=== PATIENT | female | born 1990 | race Caucasian/White ===

== ENCOUNTER → 2024-01-25 | Outpatient (REF) ==
[~2024-01-25] MED LIST: EPIP0.3I2 IM; LORA-1041 PO; METO1TAB7 PO; NIFE1TAB50 PO
== END ==
LOC: M EMP 07:58
PROVIDERS: ATTEND Family Medicine
DX: Z11.52 Encounter for screening for COVID-19 (principal)

== ENCOUNTER → 2024-03-15 | Outpatient (REF) | LOC: M EMP 10:32 | PROVIDERS: ATTEND Family Medicine | DX: Z11.52 Encounter for screening for COVID-19 (principal) ==

== ENCOUNTER 2024-04-04 08:55 | Emergency (ER) | payer OTHER ==
[~2024-04-04] VITALS: Ht 162.6 cm; Wt 84.6 kg
[2024-04-04 10:12] LABS: BASO % 0.4 % (0.0-1.0); EOS # 0.1 10^3/uL (0.0-0.5); EOS % 0.8 % (0.0-3.0); HEMATOCRIT 42.3 % (36.0-47.0); HEMOGLOBIN 14.2 g/dl (12.0-15.5); LYMPH # 1.9 10^3/uL (1.5-5.0); LYMPH % 19.7 % (24.0-44.0); MEAN CORPUSCULAR HGB CONC 33.6 g/dl (32.0-36.5); MEAN CORPUSCULAR VOLUME 83.4 fl (80.0-96.0); MONO # 0.6 10^3/uL (0.0-0.8); MONO % 6.5 % (2.0-8.0); NEUTROPHILS % 72.2 % (36.0-66.0); PLATELET COUNT, AUTOMATED 281 10^3/uL (150-450); RED BLOOD COUNT 5.07 10^6/uL (4.00-5.40); WHITE BLOOD COUNT 9.7 10^3/uL (4.0-10.0)
[2024-04-04 10:23] LABS: APPEARANCE, URINE HAZY (CLEAR); BACTERIA, URINE AUTO NEGATIVE (NEGATIVE); BILIRUBIN, URINE AUTO NEGATIVE (NEGATIVE); BLOOD, URINE BLOOD NEGATIVE (NEGATIVE); COLOR, URINE AMBER (YELLOW); GLUCOSE, URINE (UA) AUTO NEGATIVE (NEGATIVE); KETONE, URINE AUTO NEGATIVE (NEGATIVE); LEUKOCYTE ESTERASE, URINE AUTO NEGATIVE (NEGATIVE); MUCUS, URINE LARGE (NEGATIVE); NITRITE, URINE AUTO NEGATIVE (NEGATIVE); PROTEIN, URINE AUTO 1+ mg/dL (NEGATIVE); RBC, URINE AUTO 2 /HPF (0-3); SPECIFIC GRAVITY URINE AUTO 1.028 (1.002-1.035); SQUAMOUS EPITHELIAL CELL UR AU 1 /HPF (0-6); UROBILINOGEN, URINE AUTO 0.2 mg/dL (0.0-2.0); WBC, URINE AUTO 1 /HPF (0-3)
[2024-04-04 10:43] LABS: BLOOD UREA NITROGEN 13 MG/DL (9-23); CALCIUM LEVEL 9.6 MG/DL (8.5-10.1); CARBON DIOXIDE LEVEL 23 MMOL/L (20-31); CHLORIDE LEVEL 107 MMOL/L (98-107); CREATININE FOR GFR 0.71 MG/DL (0.55-1.30); GLOMERULAR FILTRATION RATE > 60.0 (>60); GLUCOSE, FASTING 99 MG/DL (60-100); POTASSIUM SERUM 4.2 MMOL/L (3.5-5.1); SODIUM LEVEL 139 MMOL/L (136-145)
[2024-04-04 10:44] LABS: HCG, SERUM QUALITATIVE NEGATIVE (NEGATIVE)
[2024-04-04] MEDS ORDERED: ISOVUE-370 76% 100ML VIAL As Ordered ONE (11:39)
[2024-04-04] MEDS: ONDANSETRON 4MG 2ML VIAL IV ONE (13:25)
[2024-04-04] MEDS: KETOROLAC 30 MG/ML 1ML VIAL IV ONE (13:25)
[2024-04-04 15:44] VITALS: BP 131/78; TEMP 98; O2SAT 98
== END 2024-04-04 16:09 | disposition home or self-care (01) ==
LOC: M ED 08:55
DX: R10.84 Generalized abdominal pain (principal); N94.6 Dysmenorrhea, unspecified; I10 Essential (primary) hypertension; J45.909 Unspecified asthma, uncomplicated; Z88.7 Allergy status to serum and vaccine; Z88.0 Allergy status to penicillin; Z88.1 Allergy status to other antibiotic agents; Z88.4 Allergy status to anesthetic agent; Z88.8 Allergy status to other drugs, medicaments and biological substances; Z79.899 Other long term (current) drug therapy
CPT/HCPCS: 74177; 76830; 76856; 80048; 81001; 84703; 85025; 86850; 86900; 86901; 93976; 96374; 99284; J1885; J2405; Q9967

== ENCOUNTER → 2024-04-08 | Outpatient (REF) | LOC: M EMP 08:16 | PROVIDERS: ATTEND Family Medicine | DX: Z11.52 Encounter for screening for COVID-19 (principal) ==

== ENCOUNTER → 2024-04-26 | Outpatient (REF) | LOC: M EMP 08:06 | PROVIDERS: ATTEND Family Medicine | DX: Z11.52 Encounter for screening for COVID-19 (principal) ==

== ENCOUNTER 2024-06-07 07:12 | Emergency (ER) | payer OTHER ==
[~2024-06-07] VITALS: Ht 162.6 cm; Wt 82.7 kg
[2024-06-07] MEDS ORDERED: MIDOTAB11 PO (07:25)
[2024-06-07 09:06] VITALS: BP 147/79; TEMP 98; O2SAT 96
== END 2024-06-07 09:07 | disposition home or self-care (01) ==
LOC: M ED 07:12
DX: M62.830 Muscle spasm of back (principal); W00.0XXA Fall on same level due to ice and snow, initial encounter; I10 Essential (primary) hypertension; J45.909 Unspecified asthma, uncomplicated; Z79.1 Long term (current) use of non-steroidal anti-inflammatories (NSAID); Z79.899 Other long term (current) drug therapy; Z88.7 Allergy status to serum and vaccine; Z88.0 Allergy status to penicillin; Z88.1 Allergy status to other antibiotic agents; Z88.8 Allergy status to other drugs, medicaments and biological substances; Y92.009 Unspecified place in unspecified non-institutional (private) residence as the place of occurrence of the external cause; Y93.89 Activity, other specified; Y99.9 Unspecified external cause status

== ENCOUNTER → 2024-06-10 | Outpatient (REF) | payer OTHER ==
[~2024-06-10] MED LIST changes: +MIDOTAB11 PO
[2024-06-10 19:39] LABS: BASO # 0.1 10^3/uL (0.0-0.2); BASO % 0.8 % (0.0-1.0); EOS # 0.1 10^3/uL (0.0-0.5); EOS % 1.8 % (0.0-3.0); HEMATOCRIT 42.9 % (36.0-47.0); HEMOGLOBIN 14.1 g/dl (12.0-15.5); LYMPH # 1.7 10^3/uL (1.5-5.0); LYMPH % 26.1 % (24.0-44.0); MEAN CORPUSCULAR HEMOGLOBIN 28.3 pg (27.0-33.0); MEAN CORPUSCULAR HGB CONC 32.9 g/dl (32.0-36.5); MONO # 0.5 10^3/uL (0.0-0.8); MONO % 8.1 % (2.0-8.0); NEUTROPHILS # 4.2 10^3/uL (1.5-8.5); PLATELET COUNT, AUTOMATED 243 10^3/uL (150-450); RED BLOOD COUNT 4.99 10^6/uL (4.00-5.40); WHITE BLOOD COUNT 6.6 10^3/uL (4.0-10.0)
[2024-06-10 19:56] LABS: FERRITIN 12.9 NG/ML (7.3-270.7); IRON (FE) 92 UG/DL (50-170); PERCENT SATURATION 28.8 % (13.2-45.0); TOTAL IRON BINDING CAPACITY 319 UG/DL (250-425)
[2024-06-10 19:57] LABS: ALBUMIN 4.1 G/DL (3.2-5.2); ALKALINE PHOSPHATASE 59 U/L (35-104); ALT/SGPT 18 U/L (7.0-40); AST/SGOT 11 U/L (<34); BILIRUBIN,TOTAL 0.5 MG/DL (0.3-1.2); BLOOD UREA NITROGEN 12 MG/DL (9-23); CALCIUM LEVEL 9.7 MG/DL (8.5-10.1); CARBON DIOXIDE LEVEL 24 MMOL/L (20-31); CHLORIDE LEVEL 108 MMOL/L (98-107); CHOLESTEROL LEVEL 192 MG/DL (<200); CHOLESTEROL RISK RATIO 5.09 (<5); CREATININE FOR GFR 0.75 MG/DL (0.55-1.30); GLOMERULAR FILTRATION RATE > 60.0 (>60); GLUCOSE, FASTING 74 MG/DL (60-100); HDL CHOLESTEROL 37.7 MG/DL (>40); LDL CHOLESTEROL 125.5 MG/DL (<100); NON-HDL-C 154.3 MG/DL; POTASSIUM SERUM 4.7 MMOL/L (3.5-5.1); SODIUM LEVEL 140 MMOL/L (136-145); THYROID STIMULATING HORMONE 1.799 uIU/ML (0.55-4.78); TOTAL PROTEIN 7.5 G/DL (5.7-8.2); TRIGLYCERIDES LEVEL 144 MG/DL (<150)
[2024-06-10 19:58] LABS: TOTAL 25(OH) VITAMIN D 11.9 NG/ML (20.0-100.0)
[2024-06-10 20:23] LABS: HIV 1&2 SCREEN NEGATIVE (NEGATIVE)
[2024-06-10 20:27] LABS: HEMOGLOBIN A1c 4.9 % (4.0-6.0)
[2024-06-10 20:30] LABS: HEPATITIS C VIRUS ABY INDEX 0.04 INDEX (<0.8)
== END ==
LOC: M LAB REF 16:11
PROVIDERS: ATTEND Physician Assistant
DX: D64.9 Anemia, unspecified (principal); E55.9 Vitamin D deficiency, unspecified; E66.9 Obesity, unspecified; Z11.9 Encounter for screening for infectious and parasitic diseases, unspecified

== ENCOUNTER 2024-06-15 16:27 | Emergency (ER) | payer OTHER ==
[~2024-06-15] VITALS: Ht 162.6 cm; Wt 83.3 kg
[2024-06-15 18:46] LABS: BASO # 0.1 10^3/uL (0.0-0.2); BASO % 0.5 % (0.0-1.0); EOS # 0.1 10^3/uL (0.0-0.5); EOS % 0.5 % (0.0-3.0); HEMOGLOBIN 13.5 g/dl (12.0-15.5); LYMPH # 2.9 10^3/uL (1.5-5.0); LYMPH % 31.5 % (24.0-44.0); MEAN CORPUSCULAR HEMOGLOBIN 28.5 pg (27.0-33.0); MEAN CORPUSCULAR HGB CONC 33.8 g/dl (32.0-36.5); MEAN CORPUSCULAR VOLUME 84.4 fl (80.0-96.0); MONO # 0.8 10^3/uL (0.0-0.8); MONO % 8.4 % (2.0-8.0); NEUTROPHILS # 5.4 10^3/uL (1.5-8.5); NEUTROPHILS % 58.9 % (36.0-66.0); PLATELET COUNT, AUTOMATED 274 10^3/uL (150-450); RED BLOOD COUNT 4.74 10^6/uL (4.00-5.40); WHITE BLOOD COUNT 9.2 10^3/uL (4.0-10.0)
[2024-06-15 18:56] LABS: KETONE, URINE AUTO RFX NEGATIVE (NEGATIVE); LEUKOCYTE ESTERASE UR AUTO RFX NEGATIVE (NEGATIVE); MUCUS, URINE RFX SMALL (NEGATIVE); NITRITE, URINE AUTO RFX NEGATIVE (NEGATIVE); RBC, URINE AUTO RFX 2 /HPF (0-3); SQUAM EPITHELIAL CELL UR AURFX 7 /HPF (0-6); WBC, URINE AUTO RFX 2 /HPF (0-3)
[2024-06-15 19:15] LABS: LIPASE 31 U/L (12-53)
[2024-06-15 19:17] LABS: ALBUMIN 4.1 G/DL (3.2-5.2); ALKALINE PHOSPHATASE 57 U/L (35-104); ALT/SGPT 15 U/L (7.0-40); AST/SGOT 13 U/L (<34); BILIRUBIN,DIRECT 0.1 MG/DL (<0.4); BILIRUBIN,TOTAL 0.5 MG/DL (0.3-1.2); BLOOD UREA NITROGEN 10 MG/DL (9-23); CARBON DIOXIDE LEVEL 25 MMOL/L (20-31); CHLORIDE LEVEL 107 MMOL/L (98-107); GLOMERULAR FILTRATION RATE > 60.0 (>60); GLUCOSE, FASTING 91 MG/DL (60-100); POTASSIUM SERUM 4.1 MMOL/L (3.5-5.1); SODIUM LEVEL 141 MMOL/L (136-145)
[2024-06-15] MEDS: ACETAMINOPHEN *IV* 1,000 MG in IV 1 EA IV ONE (19:22)
[2024-06-15] MEDS ORDERED: ISOVUE-370 76% 100ML VIAL As Ordered ONE (19:35)
[2024-06-15 22:36] LABS: HCG, SERUM QUALITATIVE NEGATIVE (NEGATIVE)
[2024-06-15] MEDS: METOPROLOL SUCC (TopROL XL) 50MG **XL** TAB PO ONE (22:45)
[2024-06-15 23:27] VITALS: BP 143/81
[2024-06-15] MEDS: NIFEdipine 30MG XL TAB PO ONE (23:27)
[2024-06-16] MEDS ORDERED: IBUP-1022 PO (01:30)
[2024-06-16 01:39] VITALS: BP 141/79; TEMP 98.2; O2SAT 98
[2024-06-17] MEDS ORDERED: FLUC150T9 PO (16:04)
== END 2024-06-16 01:44 | disposition home or self-care (01) ==
LOC: M ED 16:27
DX: R10.9 Unspecified abdominal pain (principal); N83.202 Unspecified ovarian cyst, left side; N28.1 Cyst of kidney, acquired; I10 Essential (primary) hypertension; J45.909 Unspecified asthma, uncomplicated; Z88.7 Allergy status to serum and vaccine; Z88.0 Allergy status to penicillin; Z88.1 Allergy status to other antibiotic agents; Z88.8 Allergy status to other drugs, medicaments and biological substances; Z79.1 Long term (current) use of non-steroidal anti-inflammatories (NSAID); Z79.899 Other long term (current) drug therapy
CPT/HCPCS: 74177; 76830; 76856; 80048; 80076; 81001; 83690; 84703; 85025; 93976; 96365; 99284; J0131; Q9967

== ENCOUNTER 2024-06-17 11:01 | Emergency (ER) | payer OTHER ==
[~2024-06-17] VITALS: Ht 162.6 cm; Wt 82.3 kg
[~2024-06-17 11:01] MED LIST changes: +IBUP-1022 PO
[2024-06-17] MEDS: ONDANSETRON 4MG 2ML VIAL IV ONE (13:05)
[2024-06-17] MEDS: ACETAMINOPHEN *IV* 1,000 MG in IV 1 EA IV ONE (13:05)
[2024-06-17 13:52] LABS: BASO % 0.5 % (0.0-1.0); EOS % 0.5 % (0.0-3.0); HEMATOCRIT 41.3 % (36.0-47.0); HEMOGLOBIN 14.1 g/dl (12.0-15.5); LYMPH % 25.4 % (24.0-44.0); MEAN CORPUSCULAR HEMOGLOBIN 28.7 pg (27.0-33.0); MEAN CORPUSCULAR HGB CONC 34.1 g/dl (32.0-36.5); MEAN CORPUSCULAR VOLUME 83.9 fl (80.0-96.0); MONO # 0.7 10^3/uL (0.0-0.8); MONO % 8.9 % (2.0-8.0); NEUTROPHILS # 5.1 10^3/uL (1.5-8.5); NEUTROPHILS % 64.4 % (36.0-66.0); PLATELET COUNT, AUTOMATED 252 10^3/uL (150-450); RED BLOOD COUNT 4.92 10^6/uL (4.00-5.40); WHITE BLOOD COUNT 7.8 10^3/uL (4.0-10.0)
[2024-06-17 14:18] LABS: ALBUMIN 4.1 G/DL (3.2-5.2); ALKALINE PHOSPHATASE 56 U/L (35-104); ALT/SGPT 18 U/L (7.0-40); AST/SGOT 12 U/L (<34); BILIRUBIN,DIRECT 0.2 MG/DL (<0.4); BILIRUBIN,TOTAL 0.6 MG/DL (0.3-1.2); BLOOD UREA NITROGEN 10 MG/DL (9-23); CALCIUM LEVEL 10.1 MG/DL (8.5-10.1); CARBON DIOXIDE LEVEL 24 MMOL/L (20-31); CHLORIDE LEVEL 107 MMOL/L (98-107); CREATININE FOR GFR 0.78 MG/DL (0.55-1.30); GLOMERULAR FILTRATION RATE > 60.0 (>60); GLUCOSE, FASTING 88 MG/DL (60-100); SODIUM LEVEL 142 MMOL/L (136-145); TOTAL PROTEIN 7.9 G/DL (5.7-8.2)
[2024-06-17 14:25] LABS: HCG, SERUM QUALITATIVE NEGATIVE (NEGATIVE)
[2024-06-17] MEDS: NS (Normal Saline) 0.9% 1,000 ML IV ONE (14:40)
[2024-06-17] MEDS ORDERED: ISOVUE-370 76% 100ML VIAL As Ordered ONE (14:50)
[2024-06-17] MEDS: KETOROLAC 30 MG/ML 1ML VIAL IV ONE (15:10)
[2024-06-17 15:16] LABS: KETONE, URINE AUTO RFX TRACE mg/dL (NEGATIVE); LEUKOCYTE ESTERASE UR AUTO RFX NEGATIVE (NEGATIVE); MUCUS, URINE RFX LARGE (NEGATIVE); NITRITE, URINE AUTO RFX NEGATIVE (NEGATIVE); RBC, URINE AUTO RFX 1 /HPF (0-3); SQUAM EPITHELIAL CELL UR AURFX 2 /HPF (0-6); WBC, URINE AUTO RFX 2 /HPF (0-3)
[2024-06-17 15:31] VITALS: BP 139/81; TEMP 98.1; O2SAT 100
[2024-06-17] MEDS ORDERED: FLUC150T9 PO (16:04)
[2024-06-17 16:29] LABS: Trichomonas vaginalis (AMP) NOT DETECTED (NEGATIVE)
[2024-06-17 16:53] LABS: GC DNA AMPLIFICATION NEGATIVE (NEGATIVE)
== END 2024-06-17 16:15 | disposition home or self-care (01) ==
LOC: M ED 11:01
DX: R10.31 Right lower quadrant pain (principal); B37.31 Acute candidiasis of vulva and vagina; N83.202 Unspecified ovarian cyst, left side; K59.00 Constipation, unspecified; I10 Essential (primary) hypertension; J45.909 Unspecified asthma, uncomplicated; Z88.1 Allergy status to other antibiotic agents; Z88.7 Allergy status to serum and vaccine; Z88.8 Allergy status to other drugs, medicaments and biological substances; Z79.1 Long term (current) use of non-steroidal anti-inflammatories (NSAID); Z79.899 Other long term (current) drug therapy
CPT/HCPCS: 74177; 76830; 76856; 80048; 80076; 81001; 84703; 85025; 87210; 87661; 87810; 87850; 93976; 96374; 96375; 99284; J0131; J1885; J2405; Q9967

== ENCOUNTER 2024-06-21 15:40 | Emergency (ER) | payer OTHER ==
[~2024-06-21] VITALS: Ht 162.6 cm; Wt 83.0 kg
[~2024-06-21 15:40] MED LIST changes: +FLUC150T9 PO
[2024-06-21 17:31] LABS: BASO # 0.1 10^3/uL (0.0-0.2); BASO % 0.6 % (0.0-1.0); EOS # 0.1 10^3/uL (0.0-0.5); EOS % 0.8 % (0.0-3.0); HEMATOCRIT 41.4 % (36.0-47.0); HEMOGLOBIN 14.2 g/dl (12.0-15.5); LYMPH # 2.6 10^3/uL (1.5-5.0); MEAN CORPUSCULAR HEMOGLOBIN 28.4 pg (27.0-33.0); MEAN CORPUSCULAR HGB CONC 34.3 g/dl (32.0-36.5); MEAN CORPUSCULAR VOLUME 82.8 fl (80.0-96.0); MONO # 0.8 10^3/uL (0.0-0.8); MONO % 7.7 % (2.0-8.0); NEUTROPHILS # 6.6 10^3/uL (1.5-8.5); NEUTROPHILS % 64.6 % (36.0-66.0); PLATELET COUNT, AUTOMATED 265 10^3/uL (150-450); WHITE BLOOD COUNT 10.2 10^3/uL (4.0-10.0)
[2024-06-21 17:58] LABS: LIPASE 29 U/L (12-53)
[2024-06-21 18:00] LABS: ALBUMIN 4.4 G/DL (3.2-5.2); ALKALINE PHOSPHATASE 55 U/L (35-104); ALT/SGPT 14 U/L (7.0-40); AST/SGOT 12 U/L (<34); BILIRUBIN,DIRECT 0.2 MG/DL (<0.4); BILIRUBIN,TOTAL 0.7 MG/DL (0.3-1.2); BLOOD UREA NITROGEN 14 MG/DL (9-23); CALCIUM LEVEL 9.8 MG/DL (8.5-10.1); CARBON DIOXIDE LEVEL 22 MMOL/L (20-31); CHLORIDE LEVEL 107 MMOL/L (98-107); CREATININE FOR GFR 0.67 MG/DL (0.55-1.30); GLOMERULAR FILTRATION RATE > 60.0 (>60); GLUCOSE, FASTING 91 MG/DL (60-100); POTASSIUM SERUM 4.3 MMOL/L (3.5-5.1); SODIUM LEVEL 139 MMOL/L (136-145); TOTAL PROTEIN 8.1 G/DL (5.7-8.2)
[2024-06-21 19:13] LABS: HCG, SERUM QUALITATIVE NEGATIVE (NEGATIVE)
[2024-06-21] MEDS: ONDANSETRON 4MG ORAL DISINTEGRATING TAB PO ONE (20:16)
[2024-06-21 20:38] VITALS: BP 144/80; TEMP 97.6; O2SAT 98
== END 2024-06-21 20:45 | disposition home or self-care (01) ==
LOC: M ED 15:40
DX: R11.2 Nausea with vomiting, unspecified (principal); R19.7 Diarrhea, unspecified; F41.9 Anxiety disorder, unspecified; F32.A Depression, unspecified; Z88.7 Allergy status to serum and vaccine; Z88.0 Allergy status to penicillin; Z88.1 Allergy status to other antibiotic agents; Z88.8 Allergy status to other drugs, medicaments and biological substances; Z79.1 Long term (current) use of non-steroidal anti-inflammatories (NSAID); Z79.899 Other long term (current) drug therapy

== ENCOUNTER → 2024-06-22 | Outpatient (REF) | payer OTHER | LOC: M LAB REF 09:26 | PROVIDERS: ATTEND Physician Assistant Medical | DX: R19.7 Diarrhea, unspecified (principal) ==

== ENCOUNTER 2024-06-26 17:02 | Inpatient (IN) | payer OTHER ==
[~2024-06-26] VITALS: Ht 160 cm; Wt 81.7 kg
[2024-06-26 18:37] LABS: HEMOGLOBIN 14.5 g/dl (12.0-15.5); MEAN CORPUSCULAR HEMOGLOBIN 28.9 pg (27.0-33.0); MEAN CORPUSCULAR HGB CONC 34.5 g/dl (32.0-36.5); MEAN CORPUSCULAR VOLUME 83.8 fl (80.0-96.0); PLATELET COUNT, AUTOMATED 230 10^3/uL (150-450); RED BLOOD COUNT 5.01 10^6/uL (4.00-5.40)
[2024-06-26 18:47] LABS: AMPHETAMINES LEVEL URINE NEGATIVE (NEGATIVE); BARBITURATES URINE NEGATIVE (NEGATIVE); BENZODIAZEPINES URINE NEGATIVE (NEGATIVE); CANNABINOIDS URINE NEGATIVE (NEGATIVE); COCAINE METABOLITE URINE NEGATIVE (NEGATIVE); METHADONE URINE NEGATIVE (NEGATIVE); OPIATES URINE NEGATIVE (NEGATIVE); PHENCYCLIDINE URINE NEGATIVE (NEGATIVE)
[2024-06-26 18:49] LABS: ETHYL ALCOHOL (ETHANOL) 0.008 % (0.000-0.010)
[2024-06-26 18:51] LABS: ALBUMIN 4.3 G/DL (3.2-5.2); ALKALINE PHOSPHATASE 54 U/L (35-104); ALT/SGPT 15 U/L (7.0-40); AST/SGOT 12 U/L (<34); BILIRUBIN,DIRECT < 0.1 MG/DL (<0.4); BILIRUBIN,TOTAL 0.3 MG/DL (0.3-1.2); BLOOD UREA NITROGEN 13 MG/DL (9-23); CALCIUM LEVEL 10.4 MG/DL (8.5-10.1); CARBON DIOXIDE LEVEL 22 MMOL/L (20-31); CHLORIDE LEVEL 110 MMOL/L (98-107); CREATININE FOR GFR 0.75 MG/DL (0.55-1.30); GLOMERULAR FILTRATION RATE > 60.0 (>60); GLUCOSE, FASTING 90 MG/DL (60-100); POTASSIUM SERUM 3.8 MMOL/L (3.5-5.1); SALICYLATE LEVEL < 3.0 MG/DL (<30); SODIUM LEVEL 144 MMOL/L (136-145); TOTAL PROTEIN 7.6 G/DL (5.7-8.2)
[2024-06-26 18:53] LABS: THYROID STIMULATING HORMONE 2.297 uIU/ML (0.55-4.78)
[2024-06-26] MEDS: BOOSTRIX VACCINE (TETANUS/DIPHTH/ACEL. PERTUSSIS) 0.5ML SYR IM ONE (19:33)
[2024-06-26] MEDS ORDERED: MAALOX 30 ML SUSP *UDC PO PRN (20:55)
[2024-06-26] MEDS ORDERED: MOM 30ML SUSPENSION UDC PO PRN (20:55)
[2024-06-26] MEDS ORDERED: traZODone 50 MG TAB PO PRN (20:55)
[2024-06-26] MEDS ORDERED: HOME MED LIST COMPLETE! XX SCH (21:35)
[2024-06-26] MEDS: diphenhydrAMINE 25MG CAP PO PRN (23:50)
[2024-06-27] VITALS: BP 139/89; TEMP 98.2; O2SAT 98
[2024-06-27 08:54] VITALS: BP 139/89; TEMP 98.2; O2SAT 98
[2024-06-27] MEDS: NICOTINE 14 MG/24 HR TRANSDERMAL TD SCH (09:00)
[2024-06-27] MEDS: ACETAMINOPHEN 325 MG TAB PO PRN (12:17)
[2024-06-27] MEDS ORDERED: **SFRHE** EPINEPHrine (EPIPEN) 0.3MG/0.3ML SYRINGE INJ PRN (15:25)
[2024-06-27] MEDS: NIFEdipine 30MG XL TAB PO SCH (17:12)
[2024-06-27] MEDS: METOPROLOL SUCC (TopROL XL) 50MG **XL** TAB PO SCH (17:12)
[2024-06-27 18:54] VITALS: BP 160/86; TEMP 98.3; O2SAT 97
[2024-06-27] MEDS: OLANZapine ORAL DISINTEGRATING TAB 5MG PO PRN (21:46)
[2024-06-28 06:21] VITALS: BP 121/57; TEMP 97.9; O2SAT 98
[2024-06-28] MEDS: SERTRALINE HCL 25 MG TABLET PO SCH (08:30)
[2024-06-28 14:27] VITALS: BP 134/76; TEMP 97.1; O2SAT 98
[2024-06-29 06:18] VITALS: BP 145/65; TEMP 97.7; O2SAT 98
[2024-06-29 08:08] VITALS: BP 159/88
[2024-06-29 16:14] VITALS: BP 144/81; TEMP 97.8; O2SAT 99
[2024-06-30 06:30] VITALS: BP 113/66; TEMP 97.5; O2SAT 98
[2024-06-30 08:17] VITALS: BP 140/87
[2024-06-30] MEDS ORDERED: OLAN5ZYD PO (14:31)
[2024-06-30] MEDS ORDERED: SERT25TA21 PO (14:31)
== END 2024-06-30 15:21 | disposition home or self-care (01) | DRG 754 ==
LOC: M ED 17:02 → M ED INP 20:51 → M PSY 23:01
PROVIDERS: ADMIT Psychiatry & Neurology Neurology; ATTEND Psychiatry & Neurology Neurology
DX: F32.A Depression, unspecified (principal); I10 Essential (primary) hypertension; R45.851 Suicidal ideations; F43.10 Post-traumatic stress disorder, unspecified; F41.1 Generalized anxiety disorder; Z88.0 Allergy status to penicillin; Z88.7 Allergy status to serum and vaccine; Z88.8 Allergy status to other drugs, medicaments and biological substances; E28.2 Polycystic ovarian syndrome; E66.9 Obesity, unspecified

== ENCOUNTER 2024-07-04 17:23 | Inpatient (IN) | payer OTHER ==
[~2024-07-04] VITALS: Ht 162.6 cm; Wt 83.2 kg
[~2024-07-04 17:23] MED LIST changes: +OLAN5ZYD PO; +SERT25TA21 PO
[2024-07-04 18:15] LABS: HEMATOCRIT 42.6 % (36.0-47.0); HEMOGLOBIN 14.4 g/dl (12.0-15.5); MEAN CORPUSCULAR HEMOGLOBIN 28.2 pg (27.0-33.0); MEAN CORPUSCULAR HGB CONC 33.8 g/dl (32.0-36.5); MEAN CORPUSCULAR VOLUME 83.5 fl (80.0-96.0); PLATELET COUNT, AUTOMATED 333 10^3/uL (150-450); WHITE BLOOD COUNT 11.3 10^3/uL (4.0-10.0)
[2024-07-04] MEDS ORDERED: OLAN5ZYD PO (18:33)
[2024-07-04] MEDS ORDERED: ZOLO25TA PO (18:33)
[2024-07-04] MEDS ORDERED: HOME MED LIST COMPLETE! XX SCH (18:35)
[2024-07-04 18:39] LABS: AMPHETAMINES LEVEL URINE NEGATIVE (NEGATIVE); BARBITURATES URINE NEGATIVE (NEGATIVE); BENZODIAZEPINES URINE NEGATIVE (NEGATIVE); COCAINE METABOLITE URINE NEGATIVE (NEGATIVE); METHADONE URINE NEGATIVE (NEGATIVE)
[2024-07-04 18:40] LABS: CANNABINOIDS URINE NEGATIVE (NEGATIVE); OPIATES URINE NEGATIVE (NEGATIVE); PHENCYCLIDINE URINE NEGATIVE (NEGATIVE)
[2024-07-04 18:41] LABS: ETHYL ALCOHOL (ETHANOL) 0.006 % (0.000-0.010)
[2024-07-04 18:42] LABS: SALICYLATE LEVEL < 3.0 MG/DL (<30)
[2024-07-04 18:43] LABS: ALBUMIN 4.4 G/DL (3.2-5.2); ALKALINE PHOSPHATASE 63 U/L (35-104); ALT/SGPT 25 U/L (7.0-40); AST/SGOT 15 U/L (<34); BILIRUBIN,DIRECT 0.1 MG/DL (<0.4); BILIRUBIN,TOTAL 0.4 MG/DL (0.3-1.2); BLOOD UREA NITROGEN 10 MG/DL (9-23); CALCIUM LEVEL 10.1 MG/DL (8.5-10.1); CARBON DIOXIDE LEVEL 22 MMOL/L (20-31); CHLORIDE LEVEL 108 MMOL/L (98-107); CREATININE FOR GFR 0.64 MG/DL (0.55-1.30); GLOMERULAR FILTRATION RATE > 60.0 (>60); GLUCOSE, FASTING 114 MG/DL (60-100); SODIUM LEVEL 141 MMOL/L (136-145)
[2024-07-04 18:45] LABS: THYROID STIMULATING HORMONE 0.977 uIU/ML (0.55-4.78)
[2024-07-04] MEDS ORDERED: MOM 30ML SUSPENSION UDC PO PRN (20:25)
[2024-07-04] MEDS ORDERED: MAALOX 30 ML SUSP *UDC PO PRN (20:25)
[2024-07-04] MEDS: ACETAMINOPHEN 325 MG TAB PO PRN (22:17)
[2024-07-04 23:11] VITALS: BP 144/91; TEMP 98.2; O2SAT 99
[2024-07-05 06:23] VITALS: BP 142/91; TEMP 97.8; O2SAT 97
[2024-07-05] MEDS: NICOTINE 14 MG/24 HR TRANSDERMAL TD SCH (09:00)
[2024-07-05] MEDS: METOPROLOL SUCC (TopROL XL) 50MG **XL** TAB PO SCH (14:22)
[2024-07-05] MEDS: NIFEdipine 30MG XL TAB PO SCH (14:30)
[2024-07-05] MEDS ORDERED: **SFRHE** EPINEPHrine (EPIPEN) 0.3MG/0.3ML SYRINGE INJ PRN (16:25)
[2024-07-05 16:35] VITALS: BP 145/89; TEMP 97.5; O2SAT 99
[2024-07-05] MEDS: OLANZapine ORAL DISINTEGRATING TAB 5MG PO PRN (21:43)
[2024-07-06 06:29] VITALS: BP 129/61; TEMP 97; O2SAT 97
[2024-07-06 08:49] VITALS: BP 141/70
[2024-07-06] MEDS: ESCITALOPRAM OXALATE 10 MG TAB (LEXAPRO) PO SCH (08:51)
[2024-07-06] MEDS ORDERED: SERTRALINE HCL 25 MG TABLET PO SCH (09:00)
[2024-07-06 14:55] VITALS: BP 142/85; TEMP 98.1; O2SAT 98
[2024-07-06] MEDS: PRAZOSIN 1 MG CAP PO SCH (20:48)
[2024-07-07 06:24] VITALS: BP 125/68; TEMP 98.7; O2SAT 100
[2024-07-07 11:11] VITALS: BP 143/91; TEMP 97.7; O2SAT 97
[2024-07-07] MEDS: ONDANSETRON 4MG ORAL DISINTEGRATING TAB SL PRN (12:14)
[2024-07-07 15:01] VITALS: BP 132/69; TEMP 97.9; O2SAT 98
[2024-07-07] MEDS: traZODone 50 MG TAB PO PRN (21:58)
[2024-07-08 06:29] VITALS: BP 129/68; TEMP 97.8; O2SAT 97
[2024-07-08 09:04] VITALS: BP 138/80
[2024-07-08 14:34] VITALS: BP 138/64; TEMP 97.9; O2SAT 96
[2024-07-09 06:21] VITALS: BP 127/60; TEMP 98.4; O2SAT 96
[2024-07-09 15:49] VITALS: BP 134/74; TEMP 98; O2SAT 98
[2024-07-10 06:00] VITALS: BP 128/68; TEMP 97.3; O2SAT 97
[2024-07-10 06:44] VITALS: BP 137/73; O2SAT 98
[2024-07-10 14:35] VITALS: BP 155/68; TEMP 98; O2SAT 98
[2024-07-11 06:24] VITALS: BP 120/67; TEMP 98; O2SAT 98
[2024-07-11 08:53] VITALS: BP 119/72
[2024-07-11 15:15] VITALS: BP 119/72; TEMP 97.8; O2SAT 98
[2024-07-12 06:37] VITALS: BP 121/75; TEMP 97.7; O2SAT 97
[2024-07-12 08:26] VITALS: BP 131/75
[2024-07-12 14:43] VITALS: BP 133/61; TEMP 97.8; O2SAT 99
[2024-07-13 06:10] VITALS: BP 123/57; TEMP 97.2; O2SAT 98
[2024-07-13] MEDS: ESCITALOPRAM OXALATE 10 MG TAB (LEXAPRO) PO SCH (08:42)
[2024-07-13] MEDS: PROPRANOLOL 10 MG TAB PO ONE (14:07)
[2024-07-13 16:24] VITALS: BP 126/77; TEMP 97.7; O2SAT 95
[2024-07-13] MEDS: traZODone 100 MG TAB PO PRN (21:26)
[2024-07-13] MEDS: diphenhydrAMINE 25MG CAP PO PRN (22:30)
[2024-07-14 06:30] VITALS: BP 125/67; TEMP 97.7; O2SAT 97
[2024-07-14 08:44] VITALS: BP 122/62
[2024-07-14 16:17] VITALS: BP 117/59; TEMP 97.4; O2SAT 97
[2024-07-14 20:19] VITALS: BP 135/76
[2024-07-15 06:45] VITALS: BP 117/59; TEMP 97.9; O2SAT 98
[2024-07-15 17:07] VITALS: BP 131/74; TEMP 98.3; O2SAT 98
[2024-07-15] MEDS: LORATADINE 10 MG TAB PO ONE (18:04)
[2024-07-15] MEDS: PILL CUTTER 1 EACH XX PRN (18:08)
[2024-07-15] MEDS: SODIUM CHLORIDE NASAL 0.65% SPRAY BTL (OCEAN) SCH (20:09)
[2024-07-16 06:27] VITALS: BP 114/72; TEMP 98.2; O2SAT 97
[2024-07-16 15:12] VITALS: BP 133/66; TEMP 98.5; O2SAT 99
[2024-07-17 06:34] VITALS: BP 115/63; TEMP 98; O2SAT 98
[2024-07-17 09:30] VITALS: BP 123/64
[2024-07-17 15:37] VITALS: BP 129/73; TEMP 98.5; O2SAT 98
[2024-07-18 06:45] VITALS: BP 130/82; TEMP 97.2; O2SAT 98
[2024-07-18 08:57] VITALS: BP 139/77
[2024-07-18 09:02] VITALS: BP 139/77
[2024-07-18] MEDS ORDERED: LEXA1TAB PO (10:31)
[2024-07-18] MEDS ORDERED: PRAZ1CAP PO (10:31)
[2024-07-18] MEDS ORDERED: ABIL1TAB11 PEG (10:31)
== END 2024-07-18 12:01 | disposition home or self-care (01) | DRG 754 ==
LOC: M ED 17:23 → M ED INP 20:25 → M PSY 21:38
PROVIDERS: ADMIT Psychiatry & Neurology Neurology; ATTEND Psychiatry & Neurology Psychiatry
DX: F32.A Depression, unspecified (principal); F43.10 Post-traumatic stress disorder, unspecified; I10 Essential (primary) hypertension; R45.851 Suicidal ideations; F41.1 Generalized anxiety disorder; Z88.0 Allergy status to penicillin; Z91.018 Allergy to other foods; Z88.7 Allergy status to serum and vaccine; Z88.8 Allergy status to other drugs, medicaments and biological substances; Z79.899 Other long term (current) drug therapy; E28.2 Polycystic ovarian syndrome; E66.9 Obesity, unspecified; R42 Dizziness and giddiness

== ENCOUNTER → 2024-09-01 | Outpatient (REF) | payer OTHER ==
[~2024-09-01] MED LIST changes: +ABIL1TAB11 PEG; +LEXA1TAB PO; +PRAZ1CAP PO; +ZOLO25TA PO
[2024-09-03 14:23] LABS: HPV APTIMA Not Detected (Not Detected)
== END ==
LOC: M PLALAB 14:13
PROVIDERS: ATTEND Obstetrics & Gynecology
DX: R87.610 Atypical squamous cells of undetermined significance on cytologic smear of cervix (ASC-US) (principal)

== ENCOUNTER 2024-10-14 05:48 | Day surgery (SDC) | payer OTHER ==
[~2024-10-14] VITALS: Ht 157.5 cm; Wt 85.9 kg
[~2024-10-14 05:48] MED LIST changes: +ARIP1TAB6 PO; +KAPS50CA PO; +NIFE90TA46 PO; +SENN-186 PO
[2024-10-14] MEDS ORDERED: LR 1,000 ML IV SCH ×2 (06:30→10:45)
[2024-10-14] MEDS ORDERED: LIDOCAINE 1% SDV 5ML VIAL SC PRN (06:30)
[2024-10-14 06:37] LABS: HEMATOCRIT 38.4 % (36.0-47.0); HEMOGLOBIN 12.8 g/dl (12.0-15.5); MEAN CORPUSCULAR HEMOGLOBIN 27.4 pg (27.0-33.0); MEAN CORPUSCULAR HGB CONC 33.3 g/dl (32.0-36.5); MEAN CORPUSCULAR VOLUME 82.1 fl (80.0-96.0); PLATELET COUNT, AUTOMATED 220 10^3/uL (150-450); RED BLOOD COUNT 4.68 10^6/uL (4.00-5.40); WHITE BLOOD COUNT 7.8 10^3/uL (4.0-10.0)
[2024-10-14 07:09] LABS: ALBUMIN 3.7 G/DL (3.2-5.2); ALKALINE PHOSPHATASE 50 U/L (35-104); ALT/SGPT 11 U/L (7.0-40); AST/SGOT < 8 U/L (<34); BILIRUBIN,TOTAL 0.3 MG/DL (0.3-1.2); BLOOD UREA NITROGEN 14 MG/DL (9-23); CALCIUM LEVEL 8.8 MG/DL (8.5-10.1); CARBON DIOXIDE LEVEL 22 MMOL/L (20-31); CHLORIDE LEVEL 107 MMOL/L (98-107); CREATININE FOR GFR 0.75 MG/DL (0.55-1.30); GLOMERULAR FILTRATION RATE > 90.0 (>60); GLUCOSE, FASTING 100 MG/DL (60-100); POTASSIUM SERUM 4.2 MMOL/L (3.5-5.1); SODIUM LEVEL 138 MMOL/L (136-145); TOTAL PROTEIN 7.1 G/DL (5.7-8.2)
[2024-10-14] MEDS: ceFAZolin SOD 2 GM IV ONCE IV ONE (07:38)
[2024-10-14] MEDS ORDERED: fentaNYL 250 MCG/5 ML INJECTION As Ordered ONE (07:55)
[2024-10-14] MEDS ORDERED: SUGAMMADEX SODIUM 500 MG/5 ML VIAL (BRIDION) As Ordered ONE (07:55)
[2024-10-14] MEDS ORDERED: ONDANSETRON 4MG 2ML VIAL As Ordered ONE (07:55)
[2024-10-14] MEDS ORDERED: MIDAZOLAM INJ 2MG/2ML VIAL As Ordered ONE (07:55)
[2024-10-14] MEDS ORDERED: ROCURONIUM BROMIDE 50MG/5ML VIAL As Ordered ONE (07:55)
[2024-10-14] MEDS ORDERED: propofoL 200 MG/20 ML VIAL As Ordered ONE (07:55)
[2024-10-14] MEDS ORDERED: ACETAMINOPHEN 1000MG/100ML IV BAG As Ordered ONE (07:59)
[2024-10-14] MEDS ORDERED: ePHEDrine SULFATE 25 MG/5 ML(5MG/ML) SYRINGE As Ordered ONE (08:21)
[2024-10-14] MEDS ORDERED: GLYCOPYRROLATE INJ 0.2 MG/ML 2 ML VIAL As Ordered ONE (08:33)
[2024-10-14] MEDS ORDERED: HYDROmorphone HCL 2MG/ML 1ML VIAL As Ordered ONE (08:55)
[2024-10-14] MEDS: FLUORESCEIN 10% (100MG/ML) 5ML VIAL As Ordered ONE (10:02)
[2024-10-14] MEDS ORDERED: METOCLOPRAMIDE INJ 10MG/2ML VIAL As Ordered ONE (10:44)
[2024-10-14] MEDS ORDERED: KETOROLAC 30 MG/ML 1ML VIAL As Ordered ONE (10:44)
[2024-10-14] MEDS ORDERED: HYDROMORPHONE HCL 0.5 MG/ 0.5 ML SYRINGE IV PRN (10:45)
[2024-10-14] MEDS ORDERED: oxyCODONE 5MG TAB PO PRN (10:45)
[2024-10-14] MEDS ORDERED: ONDANSETRON 4MG 2ML VIAL IV PRN (10:45)
[2024-10-14] MEDS ORDERED: fentaNYL 100 MCG/2 ML INJECTION IV PRN (10:45)
[2024-10-14 14:34] VITALS: BP 142/77; TEMP 97.5; O2SAT 98
== END 2024-10-14 14:35 | disposition home or self-care (01) ==
LOC: M SDC 05:48
PROVIDERS: ATTEND Obstetrics & Gynecology
DX: N93.9 Abnormal uterine and vaginal bleeding, unspecified (principal); N83.8 Other noninflammatory disorders of ovary, fallopian tube and broad ligament; K66.0 Peritoneal adhesions (postprocedural) (postinfection); Z88.0 Allergy status to penicillin; Z88.1 Allergy status to other antibiotic agents; Z91.018 Allergy to other foods; Z88.7 Allergy status to serum and vaccine; I10 Essential (primary) hypertension; F41.9 Anxiety disorder, unspecified; F32.A Depression, unspecified; F43.10 Post-traumatic stress disorder, unspecified; J45.909 Unspecified asthma, uncomplicated; Z79.899 Other long term (current) drug therapy
CPT/HCPCS: 36415; 58571; 80053; 81025; 85027; 86850; 86900; 86901; 88307; J0131; J0665; J0690; J1100; J1171; J1596; J1885; J2250; J2405; J2765; J3010; S2900

== ENCOUNTER → 2025-01-27 | Outpatient (REF) | payer OTHER ==
[2025-01-27 12:46] LABS: PROLACTIN 9.73 NG/ML
== END ==
LOC: M LAB REF 12:03
PROVIDERS: ATTEND Nurse Practitioner Family
DX: N64.4 Mastodynia (principal)

== ENCOUNTER → 2025-03-01 | Outpatient (CLI) | payer OTHER ==
[~2025-03-01] MED LIST changes: -IBUP-1022 PO; +IBUP600T42 PO
== END ==
LOC: M WHC 14:12
PROVIDERS: ATTEND Nurse Practitioner Family
DX: N64.4 Mastodynia (principal); N60.11 Diffuse cystic mastopathy of right breast; N60.02 Solitary cyst of left breast

== ENCOUNTER 2025-05-18 03:04 | Emergency (ER) | payer OTHER ==
[~2025-05-18] VITALS: Ht 162.6 cm; Wt 89.6 kg
[2025-05-18] MEDS: ACETAMINOPHEN 500 MG TAB PO ONE (05:01)
[2025-05-18] MEDS: ONDANSETRON 4MG ORAL DISINTEGRATING TAB PO ONE ×2 (05:06→07:13)
[2025-05-18] MEDS: IBUPROFEN 600 MG TAB PO ONE (07:13)
[2025-05-18] MEDS ORDERED: PROCHLORPERAZINE 5MG TAB PO ONE (07:30)
[2025-05-18 08:15] VITALS: BP 147/90; TEMP 97.3; O2SAT 97
== END 2025-05-18 08:25 | disposition home or self-care (01) ==
LOC: M ED 03:04
DX: R51.9 Headache, unspecified (principal); I10 Essential (primary) hypertension; F41.9 Anxiety disorder, unspecified; F32.A Depression, unspecified; Z88.0 Allergy status to penicillin; Z88.1 Allergy status to other antibiotic agents; Z88.8 Allergy status to other drugs, medicaments and biological substances; Z88.7 Allergy status to serum and vaccine; Z79.899 Other long term (current) drug therapy

== ENCOUNTER 2025-06-05 13:37 | Emergency (ER) | payer OTHER ==
[~2025-06-05] VITALS: Ht 162.6 cm; Wt 91.0 kg
[2025-06-05 14:41] LABS: BASO # 0.0 10^3/uL (0.0-0.2); BASO % 0.3 % (0.0-1.0); EOS # 0.1 10^3/uL (0.0-0.5); EOS % 0.4 % (0.0-3.0); LYMPH # 2.0 10^3/uL (1.5-5.0); LYMPH % 16.9 % (24.0-44.0); MONO # 0.9 10^3/uL (0.0-0.8); MONO % 7.5 % (2.0-8.0); NEUTROPHILS # 8.9 10^3/uL (1.5-8.5); NEUTROPHILS % 74.6 % (36.0-66.0); PLATELET COUNT, AUTOMATED 303 10^3/uL (150-450)
[2025-06-05 15:03] LABS: CK-MB VALUE MASS < 1.0 NG/ML (<3.6)
[2025-06-05 15:06] LABS: CALCIUM LEVEL 9.3 MG/DL (8.5-10.1); CARBON DIOXIDE LEVEL 23 MMOL/L (20-31); CHLORIDE LEVEL 107 MMOL/L (98-107); CREATININE FOR GFR 0.73 MG/DL (0.55-1.30); GLOMERULAR FILTRATION RATE > 90.0 (>60); POTASSIUM SERUM 3.9 MMOL/L (3.5-5.1); SODIUM LEVEL 139 MMOL/L (136-145)
[2025-06-05 15:09] LABS: CPK CREATINE PHOSPHOKINASE 74 U/L (34-145)
[2025-06-05 15:42] LABS: CK-MB VALUE MASS < 1.0 NG/ML (<3.6)
[2025-06-05 15:47] LABS: CPK CREATINE PHOSPHOKINASE 70 U/L (34-145)
[2025-06-05 16:07] VITALS: BP 139/76; TEMP 97.5; O2SAT 97
== END 2025-06-05 16:16 | disposition home or self-care (01) ==
LOC: M ED 13:37
DX: R07.9 Chest pain, unspecified (principal); I10 Essential (primary) hypertension; Z88.7 Allergy status to serum and vaccine; Z88.8 Allergy status to other drugs, medicaments and biological substances; Z88.0 Allergy status to penicillin; Z91.02 Food additives allergy status; Z88.1 Allergy status to other antibiotic agents; Z79.899 Other long term (current) drug therapy